=== PATIENT | male | born 1975 | race Caucasian/White ===

== ENCOUNTER 2020-11-26 16:35 | Emergency (ER) | payer OTHER ==
[~2020-11-26] VITALS: Ht 177.8 cm; Wt 72.6 kg
[2020-11-26] MEDS ORDERED: LANTUS SOL100 UNIT/1 SUB-Q (19:29)
[2020-11-26] MEDS ORDERED: HUMALOG KW200 UNIT/1 SUB-Q (19:29)
== END 2020-11-26 20:15 | disposition home or self-care (01) ==
LOC: ED 16:35
DX: E11.65 Type 2 diabetes mellitus with hyperglycemia (principal)
CPT/HCPCS: 80053; 81001; 85025; 96374; 96375; 99284-25; J1815; J1885; J7030